=== PATIENT | male | born 1940 | race Caucasian/White ===

== ENCOUNTER 2017-07-21 12:42 | Outpatient (CLI) | payer MEDICARE, OTHER | END 2017-07-21 12:43 | disposition home or self-care (01) | LOC: BICRAD 12:42 | PROVIDERS: ATTEND Internal Medicine | DX: Z03.89 Encounter for observation for other suspected diseases and conditions ruled out (principal) | CPT/HCPCS: 71046 ==

== ENCOUNTER 2018-06-16 12:49 | Inpatient (IN) | payer MEDICARE, OTHER ==
[2018-06-16 13:36] LABS: #Basophils 0.1 thou/uL (0.0-0.2); #Lymphocytes 4.6 thou/uL (1.20-3.40); #Monocytes 0.5 thou/uL (0.11-0.59); #Neutrophils 4.8 thou/uL (1.40-6.50); %Basophils 1.1 % (0.0-1.0); %Eosinophils 0.3 % (0.0-10.0); %Lymphocytes 46.2 % (21.0-51.0); %Monocytes 4.6 % (0.0-10.0); %Neutrophils 47.8 % (42.0-75.0); Hemoglobin 13.2 g/dL (14.0-18.0); Mean Corpuscular HGB CONC 32.1 g/dL (32.0-36.0); Mean Corpuscular Hemoglobin 29.7 pg (27.0-31.0); Mean Corpuscular Volume 92.5 fL (78.0-98.0); Mean Platelet Volume 7.4 fL (7.4-10.4); Platelet Count 104 thou/uL (130-400); RBC Distribution Width 12.2 % (11.5-14.5); Red Blood Cell (RBC) Count 4.44 mill/uL (4.70-6.10); White Blood Cell (WBC) Count 9.9 thou/uL (4.8-10.8)
[2018-06-16 13:40] LABS: ALT (SGPT) 20 U/L (8-55); AST (SGOT) 34 U/L (5-34); Albumin 4.4 g/dL (3.4-4.8); Alkaline Phosphatase 120 U/L (40-150); Anion Gap 19 mmol/L (10-20); BUN (Urea Nitrogen) 35 mg/dL (8.4-25.7); Bilirubin, Total 0.6 mg/dL (0.2-1.2); Calc. Creatinine Clearance 0 mL/min (70-130); Calcium 9.6 mg/dL (7.8-10.44); Carbon Dioxide 22 mmol/L (23-31); Chloride 102 mmol/L (98-107); Estimated GFR-MDRD 31; Globulin 2.7 g/dL (2.4-3.5); Glucose 132 mg/dL (83-110); Potassium 4.2 mmol/L (3.5-5.1); Protein, Total 7.1 g/dL (5.8-8.1); Sodium 139 mmol/L (136-145)
[2018-06-16 13:41] LABS: Bilirubin Negative (Negative); Blood, Urine Negative (Negative); Clarity Clear (Clear); Glucose, Urine (Dipstick) 250 mg/dL (Negative); Leukocyte Negative (Negative); Nitrite Negative (Negative); Protein, Urine (Dipstick) 30 mg/dL (Neg-Trace); Specific Gravity, Urine 1.015 (1.005-1.030); Urobilinogen 0.2 mg/dL (0.2-1.0)
[2018-06-16 13:45] LABS: PLT Morphology Comment Appears Decreased; RBC Morphology Normal
[2018-06-16 14:04] LABS: Bacteria/HPF None Seen HPF (None Seen); RBC/HPF 0-3 HPF (0-3); Squamous Epithelial 0-3 HPF (0-3); WBC/HPF 0-3 HPF (0-3)
--- NOTE | 2018-06-16 14:10 | RAD ---
UPRIGHT PORTABLE CHEST ONE VIEW: HISTORY: A 78-year-old male with a history of dyspnea and weakness. COMPARISON: 07/21/2017 FINDINGS: Postop midline sternotomy and coronary artery bypass changes. Left ICD. Minimal cardiomegaly. Evid ence for healed right rib fractures. No confluent pneumonia, overt edema, or pleural effusion. IMPRESSION: 1. Minimal cardiomegaly. 2. Postoperative midline sternotomy and coronary artery bypass changes. 3. Left implantable cardioverter-defibrillator. 4. Atherosclerosis of the aorta. 5. No significant new process. POS: [facility]
[2018-06-16] MEDS ORDERED: Sodium Chloride 0.9% 100 ML ONE (14:58)
[2018-06-16] MEDS ORDERED: cefTRIAXone\\ROCEPHIN 2 GM VIAL ONE (14:58)
--- NOTE | 2018-06-16 15:52 | CT ---
CT BRAIN WITHOUT CONTRAST: HISTORY: Altered mental status. Generalized weakness. Fall. 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 The ventricular size is appropriate and the basilar cisterns are patent. No evidence of acute infarct, hemorrhage, midline shift, or abnormal extraaxial fluid collections is seen. The bony calvarium is intact. The visualized paranasal sinuses and mastoid air cells are well aerated. IMPRESSION: No CT evidence of acute intracranial process. POS: [facility]
[2018-06-16 16:16] LABS: Lactic Acid 1.3 mmol/L (0.5-2.2)
[2018-06-16 17:21] LABS: Troponin I 0.061 ng/mL (< 0.028)
[2018-06-16 17:50] VITALS: BMI 26.9
[2018-06-16] MEDS ORDERED: Dextrose 5% in Water 1,000 ML IV PRN (18:34)
[2018-06-16] MEDS ORDERED: HumaLOG 300 UNITS/3 ML VIAL SC PRN ×2 (18:34)
[2018-06-16] MEDS ORDERED: Ondansetron ODT 4 MG TAB PO PRN (18:34)
[2018-06-16] MEDS ORDERED: Ondansetron PF 4 MG/2 ML Vial IVP PRN (18:34)
[2018-06-16] MEDS ORDERED: INSULIN DETEMIR SC PRN (18:34)
[2018-06-16] MEDS ORDERED: Dextrose 50% Abboject 50 ML SYRINGE SLOW IVP PRN (18:34)
[2018-06-16] MEDS ORDERED: VANCOMYCIN/ RENALLY ADJUST ZOSYN IVPB PRN (19:05)
[2018-06-16] MEDS ORDERED: Insulin Glargine 8 UNITS in Pre-Filled Syringe 1 EACH SC PRN (19:15)
[2018-06-16] MEDS: Sodium Chloride 0.9% 1,000 ML IV SCH (19:23)
[2018-06-16 20:27] LABS: Troponin I 0.075 ng/mL (< 0.028)
[2018-06-16] MEDS ORDERED: Non-Formulary Item 1 EACH (Fluticasone/Vilanterol [Breo Ellipta 200-25 Mcg Inh] 1 PUFF) INH SCH (21:00)
[2018-06-16] MEDS: Famotidine 20 MG TAB PO SCH (21:19)
[2018-06-16] MEDS: Carvedilol 6.25 MG TAB PO SCH (21:19)
[2018-06-16] MEDS: Vancomycin HCl 1.25 GM in Sodium Chloride 0.9% 250 ML 250 ML IVPB SCH (21:29)
[2018-06-16] MEDS: Piperacillin/Tazobactam 2.25 GM in Sodium Chloride 0.9% 100 ML IVPB SCH (23:58)
[2018-06-16] MEDS ORDERED: Piperacillin/Tazobactam 3.375 GM in Sodium Chloride 0.9% 100 ML IVPB SCH (23:59)
--- NOTE | 2018-06-17 02:15 | HP ---
PRIMARY CARE PROVIDER: Dr. Sonny Giang. CHIEF COMPLAINT: General weakness and shaking chills. HISTORY OF PRESENT ILLNESS: This is a 78-year-old male, who presents to [facility] Emergency Department complaining of profound weakness, shaking chills and riders which began in the last 24 hours. The patient states he initially was evaluated by his primary care provider in the last 48 hours and placed on undisclosed medication. The patient states he began to experience shaking chills, at which point, he sought medical attention at his primary care provider's office. The patient states he began to have multiple episodes of emesis, profound weakness, and was unable to chief engineering division the bathroom stall slumping to the floor. The patient needed assistance to get into a wheelchair, but denied any luna syncope or blacking out spell. The patient denied any specific known exposure history, but states that over the hols, he was at two different parties and exposed up to 40 different people and extended family members. The patient denies any knowledge of family members with similar symptoms and states his does not have any similar symptoms or fever. The patient denied any specific increased shortness of breath or prominent cough, but does state some postnasal drainage and nasal congestion. The patient denied any recent antibiotic exposure, change to his chronic medication regimen, or recent vaccinations. The patient states he is current on his influenza and pneumonia vaccinations. The patient denied any recent surgical exposure or dental procedures. In the emergency room, the patient underwent general evaluation, receiving intravenous normal saline x2.25 L in addition to Levaquin and Rocephin after concern for sepsis and an early pneumonia. The patient states he has symptomatically improved with supportive management and IV fluids, and was noted with elevated lactic acid level and heart rate. The patient was transferred to the telemetry unit for further evaluation. PAST MEDICAL HISTORY: 1. Diabetes mellitus type 2 x23 years. 2. Hyperlipidemia. 3. Hypertension. 4. Coronary artery disease, status post myocardial infarction. 5. History of congestive heart failure with implantable cardioverter-defibrillator. 6. Chronic thrombocytopenia. 7. Chronic kidney disease stage 3. 8. History of cataracts. PAST SURGICAL HISTORY: 1. Status post cardioverter-defibrillator placement. 2. Status post bilateral cataract removal. 3. Status post left total hip arthroplasty. 4. Status post coronary artery bypass grafting x2 vessels. 5. Status post left shoulder arthroscopy. 6. Status post left wrist with de Quervain tendinitis surgery. 7. Status post multiple endoscopies. CURRENT MEDICATIONS: 1. Amiodarone 200 mg p.o. daily. 2. Enteric-coated aspirin 81 mg p.o. daily. 3. Carvedilol 6.25 mg p.o. b.i.d. 4. Ferrous sulfate 325 mg p.o. b.i.d. 5. Breo Ellipta one puff inhaled q.h.s. 6. Lasix 20 mg p.o. daily. 7. Glyburide 5 mg p.o. b.i.d. 8. Hydralazine 10 mg p.o. b.i.d. 9. Levemir insulin 18 units subcutaneously daily. 10. Levothyroxine 75 mcg p.o. daily. 11. Simvastatin 40 mg p.o. q.h.s. 12. Flomax 0.8 mg p.o. daily. 13. Temazepam 30 mg p.o. q.h.s. 14. Coenzyme Q10 one capsule p.o. daily. ALLERGIES: HYDROCODONE, ADHESIVE TAPE, AZITHROMYCIN, DOXYCYCLINE, PROMETHAZINE, ENOXAPARIN. FAMILY HISTORY: Mother of complications of congestive heart failure at the age of 86. Father of lung cancer at the age of 69. SOCIAL HISTORY: No current alcohol, tobacco, or illicit drug use. Quit smoking over 20 years prior to this evaluation. 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 . Functional of all activities of daily living. REVIEW OF SYSTEMS: CONSTITUTIONAL: Negative for weight loss or gain, ability to conduct usual activities. SKIN: Negative for rash, itching. EYES: Negative for double vision, pain. ENT/MOUTH: Negative for nose bleeding, neck stiffness, pain, tenderness. CARDIOVASCULAR: Negative for palpitations, dyspnea on exertion, orthopnea. RESPIRATORY: Negative for shortness of breath, wheezing, cough, hemoptysis, fever or night sweats. GASTROINTESTINAL: Negative for poor appetite, abdominal pain, heartburn, nausea, vomiting, constipation, or diarrhea. GENITOURINARY: Negative for urgency, frequency, dysuria, nocturia. MUSCULOSKELETAL: Negative for pain, swelling. NEUROLOGIC/PSYCHIATRIC: Negative for anxiety, depression. ALLERGY/IMMUNOLOGIC: Negative for skin rash, bleeding tendency. Otherwise, negative except as stated per HPI. PHYSICAL EXAMINATION: VITAL SIGNS: On admission, blood pressure 122/58, pulse 90, respiratory rate 18, temperature 98.4 degrees Fahrenheit, O2 saturation 98% on 2 L/minute by nasal cannula. GENERAL APPEARANCE: This is a 78-year-old male, alert and oriented x3, pleasant, conversant, in no acute distress. HEENT: Pupils are equal, round, and reactive to light and accommodation. Extraocular muscles are intact. No scleral icterus. Mild conjunctival injection, right greater than left. Nares patent. OP is clear. Upper and lower dentures noted. NECK: Supple. No cervical adenopathy. No thyromegaly. No carotid bruits. No JVD appreciated. Cervical spine with full active and passive range of motion. No meningeal signs appreciated. CHEST: Lungs are clear to auscultation bilaterally. CARDIOVASCULAR: S1 and S2 without noted murmur, rub, or gallop. ABDOMEN: Rounded, soft, nontender, and nondistended. Bowel sounds are positive in all four quadrants. There is no hepatosplenomegaly. No abdominal bruits. No rebound or guarding appreciated. EXTREMITIES: Warm and dry with fair turgor. No clubbing, cyanosis, or asymmetric edema appreciated. Pulses palpable distally at the dorsalis pedis, posterior tibial, and popliteal arteries bilaterally. Capillary refill less than 2 seconds. NEUROLOGIC: Cranial nerves 2 through 12 are grossly intact. No focal or lateralizing signs appreciated. PERTINENT LABORATORY AND X-RAY FINDINGS: Sodium 139, potassium 4.2, chloride 102, CO2 of 22, BUN 35, creatinine 2.06, estimated GFR 31, glucose 132. Lactic acid level 3.2, previously noted 1.3 on 06/16/2018 at 4:15 am. Troponin I ranged between 0.016 to 0.061. BNP 361. CBC showed a white blood cell count of 9.9, hemoglobin 13, hematocrit 41, platelet count 104 with 45% neutrophils. Urinalysis positive for protein and glucose. Influenza A and B antigen dated 06/16/2018 negative. Portable chest x-ray dated 06/16/2018 showed postoperative changes without acute infiltrate. CT of the brain without contrast dated 06/16/2018 showed no acute intracranial process. EKG dated 06/16/2018 by my interpretation shows atrial sensed and V paced rhythm in the low 100s. ASSESSMENT AND PLAN: 1. Sepsis. The patient will be admitted to the telemetry Unit. Exact source is unclear currently. We will continue empiric treatment with vancomycin and Zosyn. Await blood and urine culture results. We will continue IV fluids with normal saline at 100 mL/h. Continue general sepsis protocol. 2. Acute kidney injury on chronic kidney disease stage 3 to 4. Avoid nephrotoxic agents and limit contrast exposure. Continue IV fluids as outlined in #1. Repeat creatinine in the a.m. 3. Lactic acidosis. Secondary to #1. We will continue serial lactic acid assessment per protocol. 4. Acute metabolic encephalopathy. Suspect secondary to #1. Improved with volume replacement and IV antibiotics. We will continue to monitor mental status with reorientation techniques as needed. 5. Diabetes mellitus type 2, insulin requiring. Resume home insulin regimen with Levemir 8 units subcutaneously daily. Insulin sliding scale for reflexive coverage. ADA diet. 6. Hypertension. Resume home antihypertensive regimen and monitor clinical response. 7. Prophylaxis. SCDs while in bed. Pepcid 20 mg p.o. b.i.d. PT evaluation for functional assessment in the a.m. CODE STATUS: Full. Surrogate medical decision maker is patient's spouse. Job ID: [id number]
[2018-06-17] MEDS: Levothyroxine Sodium 75 MCG TAB PO SCH (05:40)
[2018-06-17] MEDS: Piperacillin/Tazobactam 2.25 GM in Sodium Chloride 0.9% 100 ML IVPB SCH ×4 (05:40→23:15)
[2018-06-17] MEDS: Sodium Chloride 0.9% 1,000 ML IV SCH ×3 (05:42→23:14)
[2018-06-17 06:59] LABS: Anion Gap 12 mmol/L (10-20); BUN (Urea Nitrogen) 31 mg/dL (8.4-25.7); Calc. Creatinine Clearance 40 mL/min (70-130); Calcium 8.3 mg/dL (7.8-10.44); Carbon Dioxide 23 mmol/L (23-31); Chloride 108 mmol/L (98-107); Estimated GFR-MDRD 36; Glucose 76 mg/dL (83-110); Potassium 4.1 mmol/L (3.5-5.1); Sodium 139 mmol/L (136-145)
[2018-06-17 08:09] LABS: Hemoglobin 11.9 g/dL (14.0-18.0); Mean Corpuscular HGB CONC 32.8 g/dL (32.0-36.0); Mean Corpuscular Hemoglobin 31.1 pg (27.0-31.0); Mean Platelet Volume 7.9 fL (7.4-10.4); Platelet Count 99 thou/uL (130-400); RBC Distribution Width 12.6 % (11.5-14.5); Red Blood Cell (RBC) Count 3.83 mill/uL (4.70-6.10); White Blood Cell (WBC) Count 8.6 thou/uL (4.8-10.8)
[2018-06-17 08:10] LABS: Band 27 % (5-11); Lymphocytes 54 % (21-51); MDiff Complete? YES; Metamyelocyte 1 % (0-0); Monocytes 2 % (0-10); Neutrophil 16 % (42-75); PLT Morphology Comment Appears Decreased
[2018-06-17] MEDS: glyBURIDE 5 MG TAB PO SCH ×2 (08:24→18:13)
[2018-06-17] MEDS: Aspirin 81 mg Enteric Coated Tablet PO SCH (08:24)
[2018-06-17] MEDS: Tamsulosin HCl 0.4 MG CAP PO SCH (08:24)
[2018-06-17] MEDS: Carvedilol 6.25 MG TAB PO SCH ×2 (08:24→20:05)
[2018-06-17] MEDS: Amiodarone 200 MG TAB PO SCH (08:24)
[2018-06-17] MEDS: Acetaminophen 500 MG TAB PO PRN (08:24)
[2018-06-17] MEDS: Mometasone/Formoterol 120 PUFF INHALER INH SCH ×2 (08:54→18:30)
--- NOTE | 2018-06-17 11:49 | PDOC.PN ---
- Subjective Encounter Start Date: 06/17/18 Encounter Start Time: 11:35 Subjective: f/u for suspected sepsis of unclear etiology. Tx with Vanc/Zosyn -: empirically and feeling better overall. Ambulated with PT and felt better. -: No fever. Some frequent stools. - Objective Resuscitation Status - Order Detail: 06/16/18 18:27 Resuscitation Status Routine Resuscitation Status: FULL: Full Resuscitation MAR Reviewed: Yes Vital Signs & Weight: Vital Signs (12 hours) Temp Pulse Resp BP BP Pulse Ox 06/17/18 08:55 95 06/17/18 08:54 76 20 95 06/17/18 08:50 95 06/17/18 08:24 127/58 L 06/17/18 07:36 97.3 F L 80 18 179/84 H 95 06/17/18 03:52 97.6 F 81 16 174/78 H 92 L 06/17/18 01:35 94 L 06/16/18 23:57 98.4 F 103 H 20 151/67 H 93 L Weight Weight 186 lb 4.8 oz I&O: 06/16/18 06/17/18 06/18/18 06:59 06:59 06:59 Intake Total 2049 Output Total 1875 Balance 175 Result Diagrams: 06/17/18 05:20 06/17/18 05:20 Additional Labs: Accuchecks 06/17/18 06/16/18 06/16/18 05:46 22:11 13:31 POC Glucose 83 124 H 133 H Microbiology 06/16/18 13:28 Nasal swab Influenza Types A,B Direct EIA - Final 06/16/18 13:15 Venous blood - Left Arm Blood Culture - Preliminary Specimen has been received and culture in progress. No Growth to date. 06/16/18 02:11 Venous blood - Right Hand Blood Culture - Preliminary Specimen has been received and culture in progress. No Growth to date. Laboratory Tests 06/16/18 06/16/18 06/16/18 04:15 13:15 13:15 Hgb 13.2 L Neutrophils % 47.8 Neutrophils % (Manual) Band Neuts % (Manual) Creatinine 2.06 H Lactic Acid 1.3 Troponin I 06/16/18 06/16/18 06/16/18 13:15 13:15 17:00 Hgb Neutrophils % Neutrophils % (Manual) Band Neuts % (Manual) Creatinine Lactic Acid 3.2 H Troponin I 0.016 0.061 H 06/16/18 06/16/18 06/17/18 19:40 19:40 05:20 Hgb Neutrophils % Neutrophils % (Manual) 16 L Band Neuts % (Manual) 27 H Creatinine Lactic Acid 1.6 Troponin I 0.075 H EKG Reviewed by me: Yes (Tele - V-pacing) Phys Exam - Physical Examination Constitutional: NAD HEENT: PERRLA, sclera anicteric, oral pharynx no lesions Neck: no nodes, no JVD, supple, full ROM Respiratory: no wheezing, no rales, no rhonchi, clear to auscultation bilateral S1, S2 Cardiovascular: RRR, no significant murmur, no rub, gallop Gastrointestinal: soft, non-tender, no distention, positive bowel sounds Musculoskeletal: no edema, pulses present Neurological: normal sensation, moves all 4 limbs Psychiatric: A&O x 3 Skin: normal turgor, cap refill <2 seconds Dx/Plan (1) Sepsis Code(s): A41.9 - SEPSIS, UNSPECIFIED ORGANISM Status: Acute Comment: Unclear etiology, continue empiric abx currently, monitor final blood/ucx results (2) RAJ (acute kidney injury) Code(s): N17.9 - ACUTE KIDNEY FAILURE, UNSPECIFIED Status: Resolved Comment : Improved, avoid nephrotoxic meds and limit contrast exposure, serial monitoring (3) Acute metabolic encephalopathy Code(s): G93.41 - METABOLIC ENCEPHALOPATHY Status: Acute Comment: Improved and resolving, continue supportive mgmt (4) Lactic acidosis Code(s): E87.2 - ACIDOSIS Status: Acute Comment: Resolving (5) DM type 2 (diabetes mellitus, type 2) Status: Chronic Comment: ISS, ADA, serial accuchecks (6) HTN (hypertension) Code(s): I10 - ESSENTIAL (PRIMARY) HYPERTENSION Status: Chronic Qualifiers: Hypertension type: essential hypertension Qualified Code(s): I10 - Essential (primary) hypertension Comment: Resume home BP regimen, serial monitoring - Plan plan discussed w/ family, continue antibiotics, 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 diff antigen/toxin * .
[2018-06-17] MEDS: Temazepam 15 MG CAP PO SCH (20:05)
[2018-06-17] MEDS: hydrALAZINE 10 MG TAB PO SCH (20:05)
[2018-06-17] MEDS: Vancomycin HCl 1.25 GM in Sodium Chloride 0.9% 250 ML 250 ML IVPB SCH (20:06)
[2018-06-17] MEDS: Famotidine 20 MG TAB PO SCH (20:06)
[2018-06-18] MEDS: Piperacillin/Tazobactam 2.25 GM in Sodium Chloride 0.9% 100 ML IVPB SCH (04:36)
[2018-06-18] MEDS: Levothyroxine Sodium 75 MCG TAB PO SCH (04:36)
[2018-06-18] MEDS: Mometasone/Formoterol 120 PUFF INHALER INH SCH ×2 (06:47→18:30)
[2018-06-18] MEDS: Acetaminophen 500 MG TAB PO PRN ×2 (07:29→17:39)
[2018-06-18] MEDS: hydrALAZINE 10 MG TAB PO SCH ×2 (08:48→20:13)
[2018-06-18] MEDS: Amiodarone 200 MG TAB PO SCH (08:48)
[2018-06-18] MEDS: glyBURIDE 5 MG TAB PO SCH ×2 (08:48→16:20)
[2018-06-18] MEDS: Tamsulosin HCl 0.4 MG CAP PO SCH (08:48)
[2018-06-18] MEDS: Aspirin 81 mg Enteric Coated Tablet PO SCH (08:48)
[2018-06-18] MEDS: Carvedilol 6.25 MG TAB PO SCH ×2 (08:48→20:13)
[2018-06-18] MEDS: Vancomycin HCl 25 MG/ML Oral PO SCH ×4 (10:27→20:12)
[2018-06-18] MEDS: Saccharomyces boulardii 250 MG CAP PO SCH ×2 (10:27→20:13)
[2018-06-18] MEDS: Sodium Chloride 0.9% 1,000 ML IV SCH (13:42)
--- NOTE | 2018-06-18 14:55 | PDOC.PN ---
- Subjective Encounter Start Date: 06/18/18 Encounter Start Time: 14:53 Subjective: still feels weak and some abd pain -: loose stools w increased frequency -: care discussed w at bedside - Objective Resuscitation Status - Order Detail: 06/16/18 18:27 Resuscitation Status Routine Resuscitation Status: FULL: Full Resuscitation MAR Reviewed: Yes Vital Signs & Weight: Vital Signs (12 hours) Temp Pulse Resp BP Pulse Ox 06/18/18 07:31 98.1 F 109 H 18 169/87 H 95 06/18/18 06:51 94 L 06/18/18 06:47 89 20 94 L 06/18/18 04:00 99 F 85 16 171/80 H 96 Weight Weight 187 lb 5 oz I&O: 06/17/18 06/18/18 06/19/18 06:59 06:59 06:59 Intake Total 2050 1725 Output Total 1875 975 Balance 175 750 Result Diagrams: 06/17/18 05:20 06/17/18 05:20 Additional Labs: Accuchecks 06/18/18 06/18/18 06/17/18 11:03 06:01 20:39 POC Glucose 125 H 107 161 H 06/17/18 18:11 POC Glucose 153 H Microbiology 06/17/18 16:27 Stool C. difficile GDH Antigen & Toxins - Final 06/17/18 16:27 Anus Stool Lactoferrin - Final 06/17/18 16:27 Anus Campylobacter Antigen Assay - Final 06/17/18 16:27 Anus Shiga Toxin Test - Final 06/16/18 13:28 Nasal swab Influenza Types A,B Direct EIA - Final 06/17/18 05:20 Urine clean catch Urine Culture - Preliminary NO GROWTH AT 24 HOURS 06/16/18 13:15 Venous blood - Left Arm Blood Culture - Preliminary Specimen has been received and culture in progress. No Growth to date. 06/16/18 02:11 Venous blood - Right Hand Blood Culture - Preliminary Specimen has been received and culture in progress. No Growth to date. Laboratory Tests 01/31/17 06/16/18 06/16/18 16:48 13:15 13:15 Creatinine 1.93 H 2.06 H Lactic Acid 3.2 H 06/16/18 06/17/18 19:40 05:20 Creatinine 1.83 H Lactic Acid 1.6 Phys Exam - Physical Examination Constitutional: NAD pale HEENT: PERRLA, moist MMs, sclera anicteric, oral pharynx no lesions Respiratory: no wheezing, no rales, no rhonchi, clear to auscultation bilateral Cardiovascular: RRR, no significant murmur, no rub Gastrointestinal: soft, no distention, positive bowel sounds mild tenderness Musculoskeletal: no edema, pulses present Neurological: non-focal, normal sensation, moves all 4 limbs Psychiatric: normal affect, A&O x 3 Skin: no rash Dx/Plan (1) Sepsis Code(s): A41.9 - SEPSIS, UNSPECIFIED ORGANISM Status: Acute Comment: Unclear etiology, continue empiric abx currently, monitor final blood/ucx results (2) C. difficile colitis Status: Acute (3) RAJ (acute kidney injury) Code(s): N17.9 - ACUTE KIDNEY FAILURE, UNSPECIFIED Status: Acute (4) Ischemic cardiomyopathy Code(s): I25.5 - ISCHEMIC CARDIOMYOPATHY Status: Chronic (5) Chronic systolic (congestive) heart failure Code(s): I50.22 - CHRONIC SYSTOLIC (CONGESTIVE) HEART FAILURE Status: Chronic (6) DM type 2 (diabetes mellitus, type 2) Status: Chronic Comment: ISS, ADA, serial accuchecks (7) HTN (hypertension) Code(s): I10 - ESSENTIAL (PRIMARY) HYPERTENSION Status: Chronic Qualifiers: Hypertension type: essential hypertension Qualified Code(s): I10 - Essential (primary) hypertension Comment: Resume home BP regimen, serial monitoring (8) h/o ischemic colitis Status: Chronic - Plan plan discussed w/ family, continue antibiotics, DVT proph w/SCDs DC IV Vanco and zosyn.start PO Vanco for C diff -: cont IVF -: add probiotics.supportive care -: monitor renal Fx -: Hd stable * . Review of Systems - Review of Systems Constitutional: weakness, malaise. negative: fever, chills, sweats, other ENT: negative: Ear Pain, Ear Discharge, Nose Pain, Nose Discharge, Nose Congestion, Mouth Pain, Mouth Swelling, Throat Pain, Throat Swelling, Other Respiratory: negative: Cough, Dry, Shortness of Breath, Hemoptysis, SOB with Excertion, Pleuritic Pain, Sputum, Wheezing Cardiovascular: negative: chest pain, palpitations, orthopnea, paroxysmal nocturnal dyspnea, edema, light headedness, other Gastrointestinal: Nausea, Abdominal Pain, Diarrhea Genitourinary: negative: Dysuria, Frequency, Incontinence, Hematuria, Retention , Other Musculoskeletal: negative: Neck Pain, Shoulder Pain, Arm Pain, Back Pain, Hand Pain, Leg Pain, Foot Pain, Other Neurological: negative: Weakness, Numbness, Incoordination, Change in Speech, Confusion, Seizures, Other - Medications/Allergies Allergies/Adverse Reactions: Allergies Allergy/AdvReac Type Severity Reaction Status Date / Time hydrocodone Allergy Intermediate Hives Verified 06/16/18 17:48 adhesive Allergy Verified 06/16/18 17:48 azithromycin Allergy Verified 06/16/18 17:48 doxycycline Allergy Verified 06/16/18 17:48 enoxaparin sodium Allergy Verified 06/16/18 17:48 [From Lovenox] ropivacaine Allergy Verified 06/16/18 17:48 promethazine [From Phenergan] AdvReac Verified 06/16/18 17:48 adhesive tape Allergy Uncoded 06/16/18 17:48 Norapin Allergy Uncoded 06/16/18 17:48 tegaderm tape Allergy Uncoded 06/16/18 17:48 Medications: Current Medications Acetaminophen (Tylenol) 1,000 mg PO Q6H PRN PRN Reason: Mild Pain (1-3) Last Admin: 06/18/18 07:29 Dose: 1,000 mg Amiodarone HCl (Cordarone) 200 mg PO DAILY [facility] Last Admin: 06/18/18 08:48 Dose: 200 mg Aspirin (Ecotrin) 81 mg PO DAILY [facility] Last Admin: 06/18/18 08:48 Dose: 81 mg Carvedilol (Coreg) 6.25 mg PO BID [facility] Last Admin: 06/18/18 08:48 Dose: 6.25 mg Dextrose/Water (Dextrose 50%) 25 gm SLOW IVP PRN PRN PRN Reason: Hypoglycemia Famotidine (Pepcid) 20 mg PO QPM [facility] Last Admin: 06/17/18 20:06 Dose: 20 mg Glucagon (Glucagon) 1 mg IM PRN PRN PRN Reason: Hypoglycemia Glyburide (Diabeta) 5 mg PO BID-[facility] Last Admin: 06/18/18 08:48 Dose: 5 mg Hydralazine HCl (Apresoline) 10 mg PO BID [facility] Last Admin: 06/18/18 08:48 Dose: 10 mg Dextrose/Water (D5w) 1,000 mls @ 0 mls/hr IV .Q0M PRN PRN Reason: Hypoglycemia Insulin Glargine 8 units/ (Miscellaneous Medication) 0.08 mls @ 0 mls/hr SC DAILYPRN PRN PRN Reason: glucose Sodium Chloride (Normal Saline 0.9%) 1,000 mls @ 75 mls/hr IV .[id number] [facility] Last Admin: 06/18/18 13:42 Dose: 1,000 mls Insulin Human Lispro (Humalog) 0 units SC .MILD SLIDING SCALE PRN PRN Reason: Mild Correctional Scale Insulin Human Lispro (Humalog) 0 units SC .BEDTIME SLIDING SC PRN PRN Reason: Bedtime Correctional Scale Levothyroxine Sodium (Synthroid) 75 mcg PO 0600 [facility] Last Admin: 06/18/18 04:36 Dose: 75 mcg Miscellaneous Medication (Pharmacy To Dose) 1 each IVPB PRN PRN PRN Reason: Pharmacy to dose Mometasone Furoate/Formoterol Fumar (Dulera 100 Mcg/5 Mcg Inhaler) 2 puff INH BID-RT [facility] Last Admin: 06/18/18 06:47 Dose: 2 puff Ondansetron HCl (Zofran Odt) 4 mg PO Q6H PRN PRN Reason: Nausea/Vomiting Ondansetron HCl (Zofran) 4 mg IVP Q6H PRN PRN Reason: Nausea/Vomiting Saccharomyces Boulardii (Florastor) 250 mg PO BID [facility] Last Admin: 06/18/18 10:27 Dose: 250 mg Sodium Chloride (Flush - Normal Saline) 10 ml IVF Q12HR [facility] Last Admin: 06/18/18 08:49 Dose: Not Given Sodium Chloride (Flush - Normal Saline) 10 ml IVF PRN PRN PRN Reason: Saline Flush Tamsulosin HCl (Flomax) 0.4 mg PO DAILY [facility] Last Admin: 06/18/18 08:48 Dose: 0.4 mg Temazepam (Restoril) 30 mg PO HS [facility] Last Admin: 06/17/18 20:05 Dose: 30 mg Vancomycin HCl (First Vancomycin) 250 mg PO QID [facility] Last Admin: 06/18/18 13:38 Dose: 250 mg
[2018-06-18] MEDS ORDERED: hydrALAZINE 20 MG/ML VIAL SLOW IVP PRN (17:03)
[2018-06-18] MEDS ORDERED: Promethazine HCl 25 MG/ML VIAL SLOW IVP PRN (18:52)
[2018-06-18] MEDS: Famotidine 20 MG TAB PO SCH (20:13)
[2018-06-18] MEDS: Temazepam 15 MG CAP PO SCH (20:13)
[2018-06-19] MEDS: Sodium Chloride 0.9% 1,000 ML IV SCH (00:01)
[2018-06-19] MEDS: Levothyroxine Sodium 75 MCG TAB PO SCH (06:14)
[2018-06-19 06:26] LABS: Anion Gap 14 mmol/L (10-20); BUN (Urea Nitrogen) 19 mg/dL (8.4-25.7); Calc. Creatinine Clearance 54 mL/min (70-130); Calcium 8.2 mg/dL (7.8-10.44); Carbon Dioxide 20 mmol/L (23-31); Chloride 109 mmol/L (98-107); Estimated GFR-MDRD 50; Glucose 108 mg/dL (83-110); Potassium 4.1 mmol/L (3.5-5.1); Sodium 139 mmol/L (136-145)
[2018-06-19] MEDS: Mometasone/Formoterol 120 PUFF INHALER INH SCH ×2 (06:50→19:20)
[2018-06-19] MEDS: Vancomycin HCl 25 MG/ML Oral PO SCH ×4 (08:38→21:01)
[2018-06-19] MEDS: glyBURIDE 5 MG TAB PO SCH (08:38)
[2018-06-19] MEDS: Amiodarone 200 MG TAB PO SCH (08:39)
[2018-06-19] MEDS: Carvedilol 6.25 MG TAB PO SCH ×2 (08:39→21:00)
[2018-06-19] MEDS: Saccharomyces boulardii 250 MG CAP PO SCH ×2 (08:39→20:59)
[2018-06-19] MEDS: hydrALAZINE 10 MG TAB PO SCH ×2 (08:40→21:00)
[2018-06-19] MEDS: Tamsulosin HCl 0.4 MG CAP PO SCH (08:40)
[2018-06-19] MEDS: Aspirin 81 mg Enteric Coated Tablet PO SCH (08:41)
--- NOTE | 2018-06-19 13:03 | PDOC.PN ---
- Subjective Encounter Start Date: 06/19/18 Encounter Start Time: 11:55 -: old records requested/rev Pt seen and examined, chart reviewed in its entirety, this is my first visit with this patient at the bedside, updated to plan No f/C since yesterday, no N/V/d/C, reanna po, no CP or SOB, getting to [facility] easier today - Objective Resuscitation Status - Order Detail: 06/16/18 18:27 Resuscitation Status Routine Resuscitation Status: FULL: Full Resuscitation MAR Reviewed: Yes Vital Signs & Weight: Vital Signs (12 hours) Temp Pulse Resp BP Pulse Ox 06/19/18 11:46 97.9 F 65 16 161/67 H 97 06/19/18 08:25 99 06/19/18 08:20 97.8 F 71 17 147/63 H 99 06/19/18 06:58 99 06/19/18 06:50 71 16 99 06/19/18 04:00 97.7 F 75 18 146/61 H 97 Weight Weight 192 lb 7 oz I&O: 06/18/18 06/19/18 06/20/18 06:59 06:59 06:59 Intake Total 1725 1380 Output Total 975 Balance 750 1380 Result Diagrams: 06/17/18 05:20 06/19/18 05:06 Additional Labs: Accuchecks 06/18/18 06/18/18 20:23 17:39 POC Glucose 140 H 142 H Radiology Reviewed by me: Yes EKG Reviewed by me: Yes Phys Exam - Physical Examination Constitutional: NAD HEENT: PERRLA, moist MMs, sclera anicteric, oral pharynx no lesions Neck: no nodes, no JVD, supple, full ROM Respiratory: no wheezing, no rales, no rhonchi, clear to auscultation bilateral Cardiovascular: RRR, no significant murmur, no rub Gastrointestinal: soft, non-tender, positive bowel sounds distended and tympanitic Musculoskeletal: no edema, pulses present Neurological: non-focal, normal sensation, moves all 4 limbs Lymphatic: no nodes Psychiatric: normal affect, A&O x 3 Skin: no rash, normal turgor, cap refill <2 seconds Dx/Plan (1) RAJ (acute kidney injury) Code(s): N17.9 - ACUTE KIDNEY FAILURE, UNSPECIFIED Status: Resolved Comment : Cr 1.37 (2) Acute metabolic encephalopathy Code(s): G93.41 - METABOLIC ENCEPHALOPATHY Status: Acute Comment: Improved and resolving, continue supportive mgmt (3) C. difficile colitis Status: Acute (4) Lactic acidosis Code(s): E87.2 - ACIDOSIS Status: Acute Comment: Resolving (5) h/o ischemic colitis Status: Chronic (6) Anemia due to blood loss Code(s): D50.0 - IRON DEFICIENCY ANEMIA SECONDARY TO BLOOD LOSS (CHRONIC) Status: Acute (7) Colitis Status: Acute (8) Sepsis Code(s): A41.9 - SEPSIS, UNSPECIFIED ORGANISM Status: Acute Qualifiers: Sepsis type: sepsis due to unspecified organism Qualified Code(s): A41.9 - Sepsis, unspecified organism Comment: Cdiff (9) Chronic systolic (congestive) heart failure Code(s): I50.22 - CHRONIC SYSTOLIC (CONGESTIVE) HEART FAILURE Status: Chronic (10) DM type 2 (diabetes mellitus, type 2) Status: Chronic Qualifiers: Diabetes mellitus assisted insulin use: without termite treater use Diabetes mellitus complication status: with unspecified complications Qualified Code(s) : E11.8 - Type 2 diabetes mellitus with unspecified complications Comment: ISS, ADA, serial accuchecks (11) HTN (hypertension) Code(s): I10 - ESSENTIAL (PRIMARY) HYPERTENSION Status: Chronic Qualifiers: Hypertension type: essential hypertension Qualified Code(s): I10 - Essential (primary) hypertension Comment: Resume home BP regimen, serial monitoring (12) Labile hypertension Code(s): I10 - ESSENTIAL (PRIMARY) HYPERTENSION Status: Chronic (13) SBO (small bowel obstruction) Code(s): K56.69 - OTHER INTESTINAL OBSTRUCTION * DO NOT USE * Status: Resolved Comment: vs Ileus - Plan cont current plan of care, plan discussed w/ family, continue antibiotics, 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
[2018-06-19] MEDS: Temazepam 15 MG CAP PO SCH (21:00)
[2018-06-19] MEDS: Famotidine 20 MG TAB PO SCH (21:01)
[2018-06-20] MEDS: Acetaminophen 500 MG TAB PO PRN (03:33)
[2018-06-20] MEDS: Levothyroxine Sodium 75 MCG TAB PO SCH (05:13)
[2018-06-20] MEDS: Amiodarone 200 MG TAB PO SCH (08:21)
[2018-06-20] MEDS: Carvedilol 6.25 MG TAB PO SCH ×2 (08:21→20:35)
[2018-06-20] MEDS: Tamsulosin HCl 0.4 MG CAP PO SCH (08:22)
[2018-06-20] MEDS: Saccharomyces boulardii 250 MG CAP PO SCH ×2 (08:22→20:36)
[2018-06-20] MEDS: Aspirin 81 mg Enteric Coated Tablet PO SCH (08:22)
[2018-06-20] MEDS: Vancomycin HCl 25 MG/ML Oral PO SCH ×4 (08:23→20:38)
[2018-06-20] MEDS: hydrALAZINE 10 MG TAB PO SCH ×2 (08:23→20:36)
--- NOTE | 2018-06-20 08:39 | PDOC.PN ---
- Subjective Encounter Start Date: 06/20/18 Encounter Start Time: 08:38 follow up for Cdiff colitis, SBO vs ileus, no resolved, severe sepsis, physical deconditioning No F/C, no N/V/D/C, stool continues to form up, no CP or SOB, still weak, but slowly improving all systems reviewed and neg except as above - Objective Resuscitation Status - Order Detail: 06/16/18 18:27 Resuscitation Status Routine Resuscitation Status: FULL: Full Resuscitation MAR Reviewed: Yes Vital Signs & Weight: Vital Signs (12 hours) Temp Pulse Resp BP BP Pulse Ox 06/20/18 08:23 82 153/65 H 06/20/18 08:21 153/65 H 06/20/18 07:20 98.5 F 82 17 153/65 H 96 06/20/18 03:50 98.3 F 99 18 156/77 H 94 L 06/19/18 21:30 98.2 F 78 18 126/60 97 06/19/18 21:00 83 149/70 H Weight Weight 199 lb 9.6 oz I&O: 06/19/18 06/20/18 06/21/18 06:59 06:59 06:59 Intake Total 1830 Output Total 400 Balance 1430 Result Diagrams: 06/17/18 05:20 06/19/18 05:06 Additional Labs: Accuchecks 06/20/18 06/19/18 06/19/18 06:28 20:19 17:11 POC Glucose 163 H 135 H 129 H 06/19/18 11:35 POC Glucose 154 H Phys Exam - Physical Examination Constitutional: NAD HEENT: PERRLA, moist MMs, sclera anicteric, oral pharynx no lesions Neck: no nodes, no JVD, supple, full ROM Respiratory: no wheezing, no rales, no rhonchi, clear to auscultation bilateral Cardiovascular: RRR, no significant murmur, no rub Gastrointestinal: soft, non-tender, no distention, positive bowel sounds Musculoskeletal: no edema, pulses present Neurological: non-focal, normal sensation, moves all 4 limbs Lymphatic: no nodes Psychiatric: normal affect, A&O x 3 Skin: no rash, normal turgor, cap refill <2 seconds Dx/Plan (1) RAJ (acute kidney injury) Code(s): N17.9 - ACUTE KIDNEY FAILURE, UNSPECIFIED Status: Resolved Comment : Cr 1.37, fluids sstopped, drinking fine, decreased output, check in AM (2) Acute metabolic encephalopathy Code(s): G93.41 - METABOLIC ENCEPHALOPATHY Status: Resolved Comment: resolved. continue supportive mgmt (3) C. 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 resolved (9) Chronic systolic (congestive) heart failure Code(s): I50.22 - CHRONIC SYSTOLIC (CONGESTIVE) HEART FAILURE Status: Chronic Comment: no acut eexacerbation. 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 Diabetes mellitus complication status: with unspecified complications Qualified Code(s) : E11.8 - Type 2 diabetes mellitus with unspecified complications Comment: ISS, ADA, serial accuchecks, stop glyburide until eating reliably (11) HTN (hypertension) Code(s): I10 - ESSENTIAL (PRIMARY) HYPERTENSION Status: Chronic Qualifiers: Hypertension type: essential hypertension Qualified Code(s): I10 - Essential (primary) hypertension Comment: Resume home BP regimen, serial monitoring (12) Labile hypertension Code(s): I10 - ESSENTIAL (PRIMARY) HYPERTENSION Status: Chronic (13) SBO (small bowel obstruction) Code(s): K56.69 - OTHER INTESTINAL OBSTRUCTION * DO NOT USE * Status: Resolved Comment: vs Ileus - Plan cont current plan of care, plan discussed w/ family, continue antibiotics, 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 home soon advance diet to regular, walking program, if reanna po well, home tomorrow
[2018-06-20] MEDS: Mometasone/Formoterol 120 PUFF INHALER INH SCH ×2 (10:39→20:19)
[2018-06-20] MEDS: glyBURIDE 2.5 MG TAB PO SCH (17:24)
[2018-06-20] MEDS: Temazepam 15 MG CAP PO SCH (20:35)
[2018-06-20] MEDS: Famotidine 20 MG TAB PO SCH (20:35)
[2018-06-21] MEDS: Levothyroxine Sodium 75 MCG TAB PO SCH (05:24)
[2018-06-21] MEDS ORDERED: glyBURIDE 5 MG TAB PO SCH (07:30)
[2018-06-21] MEDS: Mometasone/Formoterol 120 PUFF INHALER INH SCH (08:00)
[2018-06-21 08:08] VITALS: BP 146/77; TEMP 98.1
[2018-06-21] MEDS: Aspirin 81 mg Enteric Coated Tablet PO SCH (11:18)
[2018-06-21] MEDS: Amiodarone 200 MG TAB PO SCH (11:18)
[2018-06-21] MEDS: Tamsulosin HCl 0.4 MG CAP PO SCH (11:19)
[2018-06-21] MEDS: Saccharomyces boulardii 250 MG CAP PO SCH (11:19)
[2018-06-21] MEDS: hydrALAZINE 10 MG TAB PO SCH (11:21)
[2018-06-21] MEDS: Carvedilol 6.25 MG TAB PO SCH (11:22)
[2018-06-21] MEDS: Vancomycin HCl 25 MG/ML Oral PO SCH ×3 (11:30→17:24)
[2018-06-21 11:52] LABS: Anion Gap 14 mmol/L (10-20); BUN (Urea Nitrogen) 15 mg/dL (8.4-25.7); Calc. Creatinine Clearance 51 mL/min (70-130); Calcium 8.9 mg/dL (7.8-10.44); Carbon Dioxide 21 mmol/L (23-31); Chloride 107 mmol/L (98-107); Estimated GFR-MDRD 44; Glucose 206 mg/dL (83-110); Sodium 138 mmol/L (136-145)
[2018-06-21 11:57] LABS: Hemoglobin 12.5 g/dL (14.0-18.0); Mean Corpuscular HGB CONC 32.2 g/dL (32.0-36.0); Mean Corpuscular Hemoglobin 30.9 pg (27.0-31.0); Mean Platelet Volume 7.8 fL (7.4-10.4); Platelet Count 123 thou/uL (130-400); RBC Distribution Width 12.7 % (11.5-14.5); Red Blood Cell (RBC) Count 4.04 mill/uL (4.70-6.10); White Blood Cell (WBC) Count 7.6 thou/uL (4.8-10.8)
[2018-06-21 13:03] LABS: Band 5 % (5-11); Eosinophils 1 % (0-10); Lymphocytes 60 % (21-51); MDiff Complete? YES; Monocytes 6 % (0-10); Neutrophil 23 % (42-75); Nucleated RBC 1 % (0); RBC Morphology Normal; Reactive Lymphocytes 5 % (0-10)
--- NOTE | 2018-06-21 15:06 | PDOC.PN ---
- Subjective Encounter Start Date: 06/21/18 Encounter Start Time: 15:05 Mr. Galvez was seen today in follow-up of C. Diff colitis. He says he is not having diarrhea, only some loose stools. - Objective Resuscitation Status - Order Detail: 06/16/18 18:27 Resuscitation Status Routine Resuscitation Status: FULL: Full Resuscitation MAR Reviewed: Yes Vital Signs & Weight: Vital Signs (12 hours) Temp Pulse Resp BP BP Pulse Ox 06/21/18 11:22 146/77 H 06/21/18 11:21 95 146/77 H 06/21/18 08:07 98.1 F 95 18 146/77 H 93 L 06/21/18 08:00 93 L Weight Weight 199 lb 9.6 oz I&O: 06/20/18 06/21/18 06/22/18 06:59 06:59 06:59 Intake Total 1830 2910 Output Total 400 Balance 1430 2910 Result Diagrams: 06/21/18 10:57 06/21/18 10:57 Additional Labs: Accuchecks 06/21/18 06/20/18 06/20/18 05:10 20:03 15:37 POC Glucose 130 H 226 H 193 H Phys Exam - Physical Examination HEENT: PERRLA Respiratory: no wheezing, no rales, no rhonchi, clear to auscultation bilateral Cardiovascular: RRR, no significant murmur, no rub Gastrointestinal: soft, non-tender, no distention, positive bowel sounds Musculoskeletal: no edema Dx/Plan (1) C. 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 Diff Colitis- improving * He is stable for discharge home.
[2018-06-21] MEDS: glyBURIDE 2.5 MG TAB PO SCH (17:25)
--- NOTE | 2018-06-22 03:19 | DIS ---
DATE OF ADMISSION: 06/16/2018 DATE OF DISCHARGE: 06/21/2018 PRIMARY CARE PHYSICIAN: Sonny Giang MD DISCHARGE DISPOSITION: Home. PRIMARY DISCHARGE DIAGNOSES: 1. Clostridium difficile colitis. 2. Diabetes mellitus type 2. 3. Hypertension. 4. Dyslipidemia. 5. Coronary artery disease, status post myocardial infarction. 6. Chronic thrombocytopenia. 7. Chronic kidney disease stage 3. 8. Sepsis due to Clostridium difficile. DISCHARGE MEDICATIONS: Include, 1. Oral vancomycin 250 mg p.o. q.i.d. for 10 days. 2. Florastor 250 mg twice a day for 1 month. 3. Coenzyme Q10 of 100 mg daily. 4. Restoril 30 mg at bedtime. 5. Flomax 0.8 mg daily. 6. Simvastatin 40 mg at bedtime. 7. Levothyroxine 75 mcg p.o. daily. 8. Levemir insulin 5 to 8 units as needed. 9. Hydralazine 10 mg b.i.d. 10. Glyburide 5 mg twice a day. 11. Lasix 20 mg daily. 12. Breo Ellipta 1 puff at bedtime. 13. Carvedilol 6.25 mg twice daily. 14. Aspirin 81 mg daily. 15. Pacerone 200 mg at bedtime. PROCEDURES DONE: During the admission, the patient had a CT scan of the brain, which showed no evidence of any acute intracranial process. CODE STATUS: Full code. ALLERGIES: 1. HYDROCODONE. 2. ADHESIVES. 3. AZITHROMYCIN. 4. DOXYCYCLINE. 5. ENOXAPARIN. 6. ROPIVACAINE. 7. NORPINE. 8. ADHESIVE TAPE. 9. TEGADERM. HOSPITAL COURSE: Mr. Galvez is a pleasant 78-year-old gentleman who came to the emergency room with generalized weakness and diarrhea. He was found to have sepsis syndrome related to Clostridium difficile. Stool studies were done and are positive for C diff both antigen and toxin. He was treated with oral vancomycin with improvement in his symptoms. The sepsis has resolved and he is being discharged home. He is to follow up with Dr. Giang in approximately 1 week. Job ID: [id number]
== END 2018-06-21 17:38 | disposition home or self-care (01) | DRG 871 ==
LOC: SCSER 12:49 → 2NO 14:58 → T4-B 06-19 21:15
PROVIDERS: ADMIT Internal Medicine Infectious Disease; ATTEND Internal Medicine Infectious Disease
DX: A41.9 Sepsis, unspecified organism (principal); G93.41 Metabolic encephalopathy; I13.0 Hypertensive heart and chronic kidney disease with heart failure and stage 1 through stage 4 chronic kidney disease, or unspecified chronic kidney disease; N17.9 Acute kidney failure, unspecified; E87.2 Acidosis; A04.72 Enterocolitis due to Clostridium difficile, not specified as recurrent; I50.22 Chronic systolic (congestive) heart failure; K56.609 Unspecified intestinal obstruction, unspecified as to partial versus complete obstruction; E78.5 Hyperlipidemia, unspecified; E11.22 Type 2 diabetes mellitus with diabetic chronic kidney disease; N18.3 Chronic kidney disease, stage 3 (moderate); D50.0 Iron deficiency anemia secondary to blood loss (chronic); I25.5 Ischemic cardiomyopathy; I25.10 Atherosclerotic heart disease of native coronary artery without angina pectoris; D69.6 Thrombocytopenia, unspecified; Z79.82 Long term (current) use of aspirin; Z79.4 Long term (current) use of insulin; I25.2 Old myocardial infarction; Z95.810 Presence of automatic (implantable) cardiac defibrillator; Z96.642 Presence of left artificial hip joint; Z80.1 Family history of malignant neoplasm of trachea, bronchus and lung
CPT/HCPCS: 36415; 36416; 70450; 71045; 80048; 80053; 80202; 81003; 81015; 83605; 83630; 83880; 84484; 85007; 85025; 85027; 87040; 87045; 87046; 87086; 87324; 87449; 87804; 87899; 93005; 94664; 94760; 96361; 96365; 96367; J0360; J0696; J1956; J2405; J2543; J3370; J7050; Q0162

== ENCOUNTER 2018-07-24 05:15 | Emergency (ER) | payer MEDICARE, OTHER ==
[2018-07-24] MEDS ORDERED: traMADol HCl 50 MG TAB ONE (06:34)
--- NOTE | 2018-07-24 08:48 | RAD ---
THREE VIEWS SACRUM AND COCCYX: HISTORY: Fall 10 days ago with continued tailbone pain. FINDINGS: AP pelvic and lateral views of sacrum and coccyx are obtained. Images demonstrate left hip arthroplasty. A moderate degree of right hip osteoarthritic change is se en. Vascular calcifications are seen in the iliac arteries. Osteopenia noted in the sacrum. The coccyx demonstrates no definite evidence of fractures. IMPRESSION: No definite evidence of sacral or coccygeal fracture is seen. If there is concern for sacral fractur es, correlation with MRI of the sacrum and coccyx may be of use if clinically indicated. POS: ONIEL
== END 2018-07-24 06:51 | disposition home or self-care (01) ==
LOC: SCSER 05:15
DX: S30.0XXA Contusion of lower back and pelvis, initial encounter (principal); E11.40 Type 2 diabetes mellitus with diabetic neuropathy, unspecified; E03.9 Hypothyroidism, unspecified; I25.10 Atherosclerotic heart disease of native coronary artery without angina pectoris; I25.2 Old myocardial infarction; J42 Unspecified chronic bronchitis; M19.90 Unspecified osteoarthritis, unspecified site; Z87.891 Personal history of nicotine dependence; Z79.4 Long term (current) use of insulin; Z79.82 Long term (current) use of aspirin; Z79.899 Other long term (current) drug therapy; W01.0XXA Fall on same level from slipping, tripping and stumbling without subsequent striking against object, initial encounter
CPT/HCPCS: 72220

== ENCOUNTER 2020-01-16 12:12 | Outpatient (CLI) | payer MEDICARE, OTHER ==
--- NOTE | 2020-01-16 12:24 | RAD ---
EXAM: Chest 2 views: HISTORY: Chest pain COMPARISON: 05/24/2012 FINDINGS: There is a normal-sized cardiomediastinal silhouette. The patient is status post CABG. A pacemaker s een with its leads in the right atrium, right ventricle, and coronary sinus There is no evidence of consolidation, mass, or pleural effusion. The bones are unremarkable. IMPRESSION: No evidence of acute cardiopulmonary disease
== END 2020-01-16 12:13 | disposition home or self-care (01) ==
LOC: BICRAD 12:12
PROVIDERS: ATTEND Internal Medicine Cardiovascular Disease
DX: I47.2 Ventricular tachycardia (principal)
CPT/HCPCS: 71046

== ENCOUNTER 2021-02-03 10:21 | Outpatient (CLI) | payer MEDICARE, BC, OTHER | END 2021-02-03 10:22 | disposition home or self-care (01) | LOC: BICRAD 10:21 | PROVIDERS: ATTEND Internal Medicine Cardiovascular Disease | DX: I47.2 Ventricular tachycardia (principal) | CPT/HCPCS: 71046 ==

== ENCOUNTER 2021-09-17 11:00 | Outpatient (CLI) | payer MEDICARE, BC | END 2021-09-17 11:01 | disposition home or self-care (01) | LOC: PET 11:00 | PROVIDERS: ATTEND Internal Medicine Hematology & Oncology | DX: C83.00 Small cell B-cell lymphoma, unspecified site (principal); R59.0 Localized enlarged lymph nodes | CPT/HCPCS: 78815; A9552 ==

== ENCOUNTER 2022-03-05 10:15 | Outpatient (CLI) | payer MEDICARE, BC | END 2022-03-05 10:16 | disposition home or self-care (01) | LOC: PET 10:15 | PROVIDERS: ATTEND Internal Medicine Hematology & Oncology | DX: C83.05 Small cell B-cell lymphoma, lymph nodes of inguinal region and lower limb (principal); R59.0 Localized enlarged lymph nodes | CPT/HCPCS: 78815; A9552 ==

== ENCOUNTER 2022-04-12 10:59 | Outpatient (CLI) | payer MEDICARE, BC | END 2022-04-12 11:00 | disposition home or self-care (01) | LOC: CT 10:59 | PROVIDERS: ATTEND Internal Medicine Hematology & Oncology | DX: S09.90XA Unspecified injury of head, initial encounter (principal); I61.9 Nontraumatic intracerebral hemorrhage, unspecified | CPT/HCPCS: 70450; 80053; 82248; 83615; 84100; 84550 ==

== ENCOUNTER 2022-07-01 09:30 | Outpatient (CLI) | payer MEDICARE, BC | END 2022-07-01 09:31 | disposition home or self-care (01) | LOC: PET 09:30 | PROVIDERS: ATTEND Internal Medicine Hematology & Oncology | DX: C83.05 Small cell B-cell lymphoma, lymph nodes of inguinal region and lower limb (principal) | CPT/HCPCS: 78815; A9552 ==

== ENCOUNTER 2022-09-23 11:45 | Outpatient (CLI) | payer MEDICARE, BC | END 2022-09-23 11:46 | disposition home or self-care (01) | LOC: PET 11:45 | PROVIDERS: ATTEND Internal Medicine Hematology & Oncology | DX: C83.05 Small cell B-cell lymphoma, lymph nodes of inguinal region and lower limb (principal); R59.0 Localized enlarged lymph nodes; R94.8 Abnormal results of function studies of other organs and systems | CPT/HCPCS: 78815; A9552 ==

== ENCOUNTER 2022-12-13 05:48 | Day surgery (SDC) | payer MEDICARE, BC ==
[2022-12-10 11:43] VITALS: BMI 22.8
[2022-12-10 13:16] LABS: Anion Gap 14 mmol/L (10-20); BUN (Urea Nitrogen) 39 mg/dL (8.4-25.7); Calc. Creatinine Clearance 34 mL/min (70-130); Carbon Dioxide 28 mmol/L (23-31); Chloride 100 mmol/L (98-107); Estimated GFR 39; Glucose 257 mg/dL (83-110); Potassium 5.4 mmol/L (3.5-5.1); Sodium 137 mmol/L (136-145)
[2022-12-10 13:26] LABS: Hemoglobin 10.7 g/dL (13.5-17.5); Mean Corpuscular HGB CONC 31.8 g/dL (32.0-36.0); Mean Corpuscular Hemoglobin 29.6 pg (27.0-33.0); Mean Corpuscular Volume 93.4 fl (81.2-95.1); Mean Platelet Volume 10.6 fl (7.4-10.4); Platelet Count 132 10x3/uL (150-450); RBC Distribution Width 14.9 % (11.5-14.5); Red Blood Cell (RBC) Count 3.61 10x6/uL (4.32-5.72); White Blood Cell (WBC) Count 4.9 10x3/uL (3.5-10.5)
[2022-12-13] MEDS ORDERED: Lidocaine 1% MPF 2 ML VIAL ONE (06:27)
[2022-12-13] MEDS ORDERED: fentaNYL 50 mcg/mL 1 mL Vial ONE (06:31)
[2022-12-13] MEDS ORDERED: Lidocaine 1% (PF) 30 ML VIAL ONE (08:09)
[2022-12-13] MEDS ORDERED: Gentamicin 80 MG/100 ML BAG ONE (08:09)
[2022-12-13] MEDS ORDERED: Vancomycin 500 MG VIAL (PEDI) ONE ×3 (08:09→08:38)
[2022-12-13] MEDS ORDERED: PROPOFOL 200 MG/20 ML VIAL ONE (08:36)
[2022-12-13] MEDS ORDERED: Lidocaine 1% PF 5 ML VIAL ONE (08:36)
[2022-12-13] MEDS ORDERED: diphenhydrAMINE 50 MG/ML VIAL ONE (08:36)
[2022-12-13] MEDS ORDERED: Clindamycin/D5W 900 mg/50 ml Premix Bag ONE (08:38)
[2022-12-13] MEDS ORDERED: HYDROmorphone 2 MG/ML VIAL SLOW IVP PRN (10:39)
[2022-12-13] MEDS ORDERED: Ondansetron HCl/PF 4 MG/2 ML Vial IVP PRN (10:39)
[2022-12-13] MEDS ORDERED: Promethazine HCl 25 MG/ML VIAL IM PRN (10:39)
[2022-12-13] MEDS ORDERED: Acetaminophen 325 MG TAB ONE (10:59)
== END 2022-12-13 11:49 | disposition home or self-care (01) ==
LOC: SDC 05:48
PROVIDERS: ATTEND Internal Medicine Cardiovascular Disease
DX: I47.20 Ventricular tachycardia, unspecified (principal); I50.22 Chronic systolic (congestive) heart failure; I50.1 Left ventricular failure, unspecified; I25.10 Atherosclerotic heart disease of native coronary artery without angina pectoris; I10 Essential (primary) hypertension; I48.91 Unspecified atrial fibrillation; I42.0 Dilated cardiomyopathy; E78.5 Hyperlipidemia, unspecified; E11.9 Type 2 diabetes mellitus without complications; Z88.1 Allergy status to other antibiotic agents; Z95.810 Presence of automatic (implantable) cardiac defibrillator; Z88.0 Allergy status to penicillin; Z88.2 Allergy status to sulfonamides; Z88.5 Allergy status to narcotic agent; Z91.048 Other nonmedicinal substance allergy status; Z88.8 Allergy status to other drugs, medicaments and biological substances; Z87.891 Personal history of nicotine dependence; Z79.899 Other long term (current) drug therapy; Z88.6 Allergy status to analgesic agent
CPT/HCPCS: 33241; 33249; 80048; 85027; 93641; C1763; C1882; J3010; 33264; J1200; J1580; J2001; J2704; J3371; J3490

== ENCOUNTER 2023-10-19 21:17 | Inpatient (IN) | payer MEDICARE ==
[2023-10-19] MEDS ORDERED: Amiodarone 150 MG/3 ML VIAL ONE (21:43)
[2023-10-19] MEDS ORDERED: Amiodarone 450 MG, Admixture Fee 1 EACH in Dextrose 5% in Water 250 ML IVPB SCH (22:15)
[2023-10-19 22:24] LABS: #Basophils Less than 0.03 10x3/uL (0.0-0.2); %Basophils 0.4 % (0.0-1.0); %Eosinophils 2.7 % (0.0-10.0); %Lymphocytes 41.9 % (21.0-51.0); %Monocytes 11.5 % (0.0-10.0); %Neutrophils 43.1 % (42.0-75.0); Hematocrit 39.3 % (42.0-52.0); Mean Corpuscular HGB CONC 33.1 g/dL (32.0-36.0); Mean Corpuscular Hemoglobin 30.6 pg (27.0-31.0); Mean Corpuscular Volume 92.5 fL (78.0-98.0); Platelet Count 79 10x3/uL (130-400); RBC Distribution Width 14.7 % (11.5-14.5); Red Blood Cell (RBC) Count 4.25 mill/uL (4.70-6.10)
[2023-10-19 22:30] LABS: INR-International Normal Ratio 1.1; PTT 24.4 sec (22.9-36.1); Prothrombin Time 14.3 sec (12.0-14.7)
[2023-10-19 23:00] LABS: Actual Bicarbonate (HCO3v) 21.5 mEq/L (22-28); Base Excess -6.2 mEq/L (-2.0 to +3.0); Calcium, Ionized (venous) 1.22 mmol/L (1.16-1.32); Chloride (VBG) 97 mmol/L (98-106); Hematocrit-VBG 40 % (42.0-52.0); Hemoglobin (Hb) 13.7 g/dL (12.6-17.4); Potassium (VBG) 4.82 mmol/L (3.70-5.30); Sodium 136 mmol/L (133-146); pH (venous) 7.242 (7.32-7.43)
[2023-10-19 23:01] LABS: Platelet Adequacy Comment Platelets Decreased; RBC Morphology Within Normal Limits
[2023-10-19] MEDS ORDERED: Furosemide 40 MG (4 mL) VIAL ONE (23:01)
[2023-10-19 23:09] LABS: Globulin 3.4 g/dL (2.4-3.5)
[2023-10-19 23:18] LABS: ALT (SGPT) 9 U/L (8-55); AST (SGOT) 27 U/L (5-34); Albumin 3.7 g/dL (3.4-4.8); Alkaline Phosphatase 103 U/L (40-110); Anion Gap 22 mmol/L (10-20); BUN (Urea Nitrogen) 38 mg/dL (8.4-25.7); Bilirubin, Total 0.5 mg/dL (0.2-1.2); Calc. Creatinine Clearance 0 mL/min (70-130); Calcium 10.4 mg/dL (7.8-10.44); Carbon Dioxide 21 mmol/L (23-31); Chloride 97 mmol/L (98-107); Estimated GFR 27; Glucose 151 mg/dL (83-110); Potassium 4.8 mmol/L (3.5-5.1); Protein, Total 7.1 g/dL (5.8-8.1); Sodium 135 mmol/L (136-145)
[2023-10-19 23:26] LABS: Bacteria/HPF None Seen HPF (None Seen); Bilirubin Negative (Negative); Blood, Urine Negative (Negative); CAUTI Indications for Culture Dysuria,urgency,freq; Clarity Clear (Clear); Glucose, Urine (Dipstick) 500 mg/dL (Negative); Ketone, Urine Negative (Negative); Leukocyte Negative Leu/uL (Negative); Nitrite Negative (Negative); Protein, Urine (Dipstick) 30 mg/dL (Neg-Trace); RBC/HPF 0-3 HPF (0-3); Specific Gravity, Urine 1.014 (1.002-1.036); Squamous Epithelial 0-3 HPF (0-3); Urobilinogen Normal mg/dL (Less than 2); WBC/HPF 0-3 HPF (0-3); pH, Urine 5.5 (5.0-9.0)
[2023-10-19 23:29] LABS: Magnesium 1.7 mg/dL (1.6-2.6)
[2023-10-19 23:30] LABS: Urine Culture Reflex No No
[2023-10-19] MEDS ORDERED: Magnesium 2 GM/50 ML BAG (IN WATER) ONE (23:35)
[2023-10-19 23:36] LABS: Troponin I 0.033 ng/mL (< 0.028)
[2023-10-19] MEDS ORDERED: Ondansetron PF 4 MG/2 ML Vial ONE (23:43)
[2023-10-19] MEDS ORDERED: Aspirin Chewable 81 MG TAB ONE (23:55)
[2023-10-19] MEDS ORDERED: fentaNYL 50 mcg/mL 1 mL Vial ONE (23:58)
[2023-10-19] MEDS ORDERED: DOPamine 400 MG/D5W 250 ML 0 ML ONE (23:59)
[2023-10-20] MEDS ORDERED: DOBUTamine 500 mg/250 ml 250 ML ONE
[2023-10-20] MEDS ORDERED: Sodium Chloride 0.9% 100 ML ONE (00:59)
[2023-10-20] MEDS ORDERED: Cefepime 2 GM VIAL ONE (00:59)
[2023-10-20] MEDS ORDERED: NOREPINEPHRINE 8 MG/250 ML-D5W 250 ML ONE (01:34)
[2023-10-20 02:34] LABS: Anion Gap 22 mmol/L (10-20); BUN (Urea Nitrogen) 40 mg/dL (8.4-25.7); Calc. Creatinine Clearance 0 mL/min (70-130); Calcium 9.7 mg/dL (7.8-10.44); Carbon Dioxide 19 mmol/L (23-31); Chloride 100 mmol/L (98-107); Estimated GFR 31; Glucose 180 mg/dL (83-110); Potassium 4.7 mmol/L (3.5-5.1); Sodium 136 mmol/L (136-145)
[2023-10-20] MEDS ORDERED: Dextrose 50% Abboject 50 ML SYRINGE SLOW IVP PRN (02:51)
[2023-10-20] MEDS ORDERED: Glucagon 1 MG/ML KIT IM PRN (02:51)
[2023-10-20] MEDS ORDERED: Dextrose 5% in Water 1,000 ML IV PRN (02:51)
[2023-10-20] MEDS ORDERED: HumaLOG 300 UNITS/3 ML VIAL SC PRN (02:51)
[2023-10-20 03:44] VITALS: BMI 22.7
[2023-10-20] MEDS ORDERED: Ipratropium/Albuterol 3 ML NEB NEB PRN (03:46)
[2023-10-20] MEDS ORDERED: Vancomycin Dose by Levels Sliding Scale (Wt 71-99) FS SCH (04:15)
[2023-10-20] MEDS: Vancomycin (BATCH) 1.75 GM in Premix 1 BAG IVPB SCH (05:26)
[2023-10-20] MEDS ORDERED: DOBUTamine 500 mg/250 ml 250 ML IVPB SCH (05:45)
[2023-10-20] MEDS: HumaLOG 300 UNITS/3 ML VIAL SC PRN (06:26)
[2023-10-20] MEDS: Amiodarone 450 MG in Dextrose 5% in Water 250 ML IVPB SCH (07:00)
[2023-10-20 07:26] LABS: #Basophils Less than 0.03 10x3/uL (0.0-0.2); #Eosinphils Less than 0.03 10x3/uL (0.0-0.7); %Basophils 0.1 % (0.0-1.0); %Lymphocytes 33.8 % (21.0-51.0); %Monocytes 10.9 % (0.0-10.0); %Neutrophils 54.8 % (42.0-75.0); Hematocrit 36.9 % (42.0-52.0); Hemoglobin 12.1 g/dL (14.0-18.0); Mean Corpuscular HGB CONC 32.8 g/dL (32.0-36.0); Mean Corpuscular Hemoglobin 30.3 pg (27.0-31.0); Mean Corpuscular Volume 92.5 fL (78.0-98.0); Mean Platelet Volume 10.6 fL (7.4-10.4); Platelet Count 97 10x3/uL (130-400); RBC Distribution Width 14.6 % (11.5-14.5); Red Blood Cell (RBC) Count 3.99 mill/uL (4.70-6.10)
[2023-10-20 07:33] LABS: Globulin 2.8 g/dL (2.4-3.5)
[2023-10-20 07:37] LABS: ALT (SGPT) 8 U/L (8-55); AST (SGOT) 21 U/L (5-34); Albumin 3.2 g/dL (3.4-4.8); Alkaline Phosphatase 89 U/L (40-110); Anion Gap 20 mmol/L (10-20); BUN (Urea Nitrogen) 40 mg/dL (8.4-25.7); Bilirubin, Total 0.5 mg/dL (0.2-1.2); Calc. Creatinine Clearance 26 mL/min (70-130); Calcium 9.5 mg/dL (7.8-10.44); Carbon Dioxide 22 mmol/L (23-31); Chloride 99 mmol/L (98-107); Estimated GFR 29; Glucose 223 mg/dL (83-110); Magnesium 1.9 mg/dL (1.6-2.6); Potassium 4.5 mmol/L (3.5-5.1); Sodium 136 mmol/L (136-145)
[2023-10-20 08:25] LABS: Critical Call Chem Troponin I SURG.MPN@0825; Troponin I 0.806 ng/mL (< 0.028)
[2023-10-20] MEDS: Pantoprazole 40 MG VIAL IVP SCH (08:40)
[2023-10-20] MEDS: Sodium Chloride 0.9% 500 ML IV SCH (09:40)
[2023-10-20] MEDS: NOREPINEPHRINE 8 MG/250 ML-D5W 250 ML IVPB SCH (13:44)
[2023-10-20] MEDS ORDERED: Albuterol 200 PUFF (6.7GM INHALER) INH PRN (14:18)
[2023-10-20] MEDS: QUEtiapine 25 MG TAB PO SCH ×2 (14:58→20:58)
[2023-10-20 19:19] LABS: Critical Call Chem Troponin I NUR.KK6@1918; Troponin I 0.936 ng/mL (< 0.028)
[2023-10-20] MEDS: Atorvastatin Calcium 20 MG TAB PO SCH (20:57)
[2023-10-20] MEDS: Fluticasone Propionate Nasal Spray 16 gm Bottle NASAL SCH (20:57)
[2023-10-20] MEDS: Carvedilol 3.125 MG TAB PO SCH (20:57)
[2023-10-20] MEDS: Tamsulosin HCl 0.4 MG CAP PO SCH (20:58)
[2023-10-20] MEDS: Sertraline 25 MG TAB PO SCH (20:58)
[2023-10-20] MEDS: Temazepam 15 MG CAP PO SCH (20:59)
[2023-10-20] MEDS: Pramipexole Di-HCl 0.125 MG TAB PO PRN (23:45)
[2023-10-21] MEDS: Cefepime 1 GM in Sodium Chloride 0.9% 100 ML IVPB SCH (00:52)
[2023-10-21 01:16] LABS: Vancomycin, Trough 16.3 ug/mL
[2023-10-21] MEDS: Vancomycin HCl 500 MG in Sodium Chloride 0.9% 100 ML IVPB SCH (02:32)
[2023-10-21 04:42] LABS: Hemoglobin 11.7 g/dL (14.0-18.0); Mean Corpuscular HGB CONC 32.5 g/dL (32.0-36.0); Mean Corpuscular Hemoglobin 29.8 pg (27.0-31.0); Mean Corpuscular Volume 91.6 fL (78.0-98.0); Mean Platelet Volume 10.7 fL (7.4-10.4); Platelet Count 94 10x3/uL (130-400); RBC Distribution Width 14.8 % (11.5-14.5); Red Blood Cell (RBC) Count 3.93 mill/uL (4.70-6.10)
[2023-10-21 05:01] LABS: Anion Gap 16 mmol/L (10-20); BUN (Urea Nitrogen) 43 mg/dL (8.4-25.7); Calc. Creatinine Clearance 23 mL/min (70-130); Carbon Dioxide 22 mmol/L (23-31); Chloride 98 mmol/L (98-107); Potassium 4.3 mmol/L (3.5-5.1); Sodium 132 mmol/L (136-145)
[2023-10-21 05:02] LABS: ALT (SGPT) 8 U/L (8-55); AST (SGOT) 19 U/L (5-34); Albumin 3.1 g/dL (3.4-4.8); Alkaline Phosphatase 82 U/L (40-110); Bilirubin, Total 0.5 mg/dL (0.2-1.2); Calcium 8.9 mg/dL (7.8-10.44); Estimated GFR 24; Globulin 2.7 g/dL (2.4-3.5); Glucose 152 mg/dL (83-110); Magnesium 1.8 mg/dL (1.6-2.6); Protein, Total 5.8 g/dL (5.8-8.1)
[2023-10-21 05:06] LABS: Band 14 % (5-11); Eosinophils 4 % (0-10); Hypochromia SLIGHT = 6-15 cells HPF (0-5); Lymphocytes 46 % (21-51); Monocytes 7 % (0-10); Neutrophil 19 % (42-75); Platelet Adequacy Comment Platelets Decreased; Reactive Lymphocytes 10 % (0-10)
[2023-10-21] MEDS: Levothyroxine Sodium 100 MCG TAB PO SCH (05:51)
[2023-10-21] MEDS: Furosemide 20 MG (2 mL) VIAL SLOW IVP SCH (08:00)
[2023-10-21] MEDS: Empagliflozin 25 MG TAB PO SCH (08:00)
[2023-10-21] MEDS: Loratadine 10 MG TAB PO SCH (08:00)
[2023-10-21] MEDS: CO Q-10 CAPSULE 100 MG PO SCH (08:00)
[2023-10-21] MEDS: Aspirin 81 mg Enteric Coated Tablet PO SCH (08:00)
[2023-10-21] MEDS: Multivitamin W/ Minerals 1 TAB PO SCH (08:07)
[2023-10-21] MEDS ORDERED: Sacubitril 24MG/Valsartan 26 MG TAB PO SCH (09:00)
[2023-10-21] MEDS ORDERED: Allopurinol 300 MG TAB PO SCH (09:00)
[2023-10-21] MEDS: Ipratropium/Albuterol 3 ML NEB ONE ×2 (09:26→09:28)
[2023-10-21] MEDS: DOBUTamine 500 mg/250 ml 250 ML IVPB SCH (09:32)
[2023-10-21] MEDS: Ipratropium/Albuterol 3 ML NEB NEB SCH ×2 (10:34→13:00)
[2023-10-21 15:59] LABS: Creatinine, Urine 46.33 mg/dL (63-166)
[2023-10-21 16:00] LABS: Microalbumin Urine 21.7 mg/dL (0.5-50.0); Microalbumin/Creat Ratio 468.4 mg/g (Less than 30)
[2023-10-22 05:19] LABS: Hematocrit 32.2 % (42.0-52.0); Hemoglobin 10.6 g/dL (14.0-18.0); Mean Corpuscular HGB CONC 32.9 g/dL (32.0-36.0); Mean Corpuscular Hemoglobin 30.5 pg (27.0-31.0); Mean Corpuscular Volume 92.5 fL (78.0-98.0); Mean Platelet Volume 11.8 fL (7.4-10.4); Platelet Count 89 10x3/uL (130-400); RBC Distribution Width 14.9 % (11.5-14.5); Red Blood Cell (RBC) Count 3.48 mill/uL (4.70-6.10)
[2023-10-22 05:27] LABS: ALT (SGPT) 7 U/L (8-55); AST (SGOT) 14 U/L (5-34); Albumin 2.8 g/dL (3.4-4.8); Alkaline Phosphatase 75 U/L (40-110); Anion Gap 16 mmol/L (10-20); BUN (Urea Nitrogen) 48 mg/dL (8.4-25.7); Bilirubin, Total 0.5 mg/dL (0.2-1.2); Calc. Creatinine Clearance 21 mL/min (70-130); Calcium 8.6 mg/dL (7.8-10.44); Carbon Dioxide 21 mmol/L (23-31); Chloride 93 mmol/L (98-107); Estimated GFR 21; Globulin 2.6 g/dL (2.4-3.5); Glucose 141 mg/dL (83-110); Magnesium 1.8 mg/dL (1.6-2.6); Potassium 4.1 mmol/L (3.5-5.1); Protein, Total 5.4 g/dL (5.8-8.1); Sodium 126 mmol/L (136-145)
[2023-10-22 06:44] LABS: Anisocytosis SLIGHT = 6-15 cells HPF (0-5); Band 9 % (5-11); Eosinophils 4 % (0-10); Large Platelets 1.3 % (0-5); Lymphocytes 61 % (21-51); Macrocytosis SLIGHT = 6-15 cells HPF (0-5); Monocytes 6 % (0-10); Neutrophil 20 % (42-75); Ovalocytes SLIGHT = 2-5 cells HPF (0-1); Platelet Adequacy Comment Platelets Decreased; Smudge Cells 21.5 %
[2023-10-22] MEDS: Acetaminophen 325 MG TAB PO PRN (11:18)
[2023-10-22] MEDS: Benzocaine/Menthol 1 LOZ LOZ PO PRN (14:28)
[2023-10-22] MEDS: diphenhydrAMINE 25 MG CAP PO PRN (20:34)
[2023-10-22] MEDS: Ondansetron PF 4 MG/2 ML Vial IVP PRN (22:21)
[2023-10-23] MEDS ORDERED: Senokot S 8.6-50 MG TAB PO PRN (01:23)
[2023-10-23 06:18] LABS: #Basophils Less than 0.03 10x3/uL (0.0-0.2); %Basophils 0.1 % (0.0-1.0); %Eosinophils 0.5 % (0.0-10.0); %Lymphocytes 19.4 % (21.0-51.0); %Monocytes 9.1 % (0.0-10.0); %Neutrophils 68.8 % (42.0-75.0); Hematocrit 35.4 % (42.0-52.0); Hemoglobin 11.9 g/dL (14.0-18.0); Mean Corpuscular HGB CONC 33.6 g/dL (32.0-36.0); Mean Corpuscular Hemoglobin 30.4 pg (27.0-31.0); Mean Corpuscular Volume 90.3 fL (78.0-98.0); Mean Platelet Volume 11.2 fL (7.4-10.4); Platelet Count 110 10x3/uL (130-400); RBC Distribution Width 14.3 % (11.5-14.5); Red Blood Cell (RBC) Count 3.92 mill/uL (4.70-6.10)
[2023-10-23 06:37] LABS: ALT (SGPT) 7 U/L (8-55); AST (SGOT) 16 U/L (5-34); Alkaline Phosphatase 93 U/L (40-110); Anion Gap 16 mmol/L (10-20); BUN (Urea Nitrogen) 46 mg/dL (8.4-25.7); Bilirubin, Total 0.7 mg/dL (0.2-1.2); Calc. Creatinine Clearance 22 mL/min (70-130); Calcium 8.9 mg/dL (7.8-10.44); Carbon Dioxide 22 mmol/L (23-31); Chloride 90 mmol/L (98-107); Estimated GFR 22; Globulin 2.9 g/dL (2.4-3.5); Glucose 189 mg/dL (83-110); Magnesium 1.8 mg/dL (1.6-2.6); Potassium 4.5 mmol/L (3.5-5.1); Protein, Total 5.9 g/dL (5.8-8.1); Sodium 123 mmol/L (136-145)
[2023-10-23] MEDS: Polyethylene Glycol 3350 17 GM Packet PO SCH (09:00)
[2023-10-23] MEDS: Pantoprazole DR 40 MG TAB PO SCH (09:00)
[2023-10-23] MEDS: Furosemide 40 MG (4 mL) VIAL SLOW IVP SCH (09:00)
[2023-10-23] MEDS ORDERED: Bisacodyl 10 MG SUPP PR PRN (09:46)
[2023-10-23] MEDS: diphenhydrAMINE 50 MG/ML VIAL IVP SCH (22:52)
[2023-10-24] MEDS: Lorazepam 2 MG/ML VIAL SLOW IVP PRN (09:02)
[2023-10-24 13:40] VITALS: TEMP 98.5
== END 2023-10-24 14:57 | disposition hospice, home (50) | DRG 280 ==
LOC: ERS 21:17 → CCU 10-20 02:19
PROVIDERS: ADMIT Internal Medicine; ATTEND Internal Medicine
PROC: 3E033XZ Introduction of Vasopressor into Peripheral Vein, Percutaneous Approach (ICD-10-PCS; principal; 2023-10-20)
DX: I13.0 Hypertensive heart and chronic kidney disease with heart failure and stage 1 through stage 4 chronic kidney disease, or unspecified chronic kidney disease (principal); I50.23 Acute on chronic systolic (congestive) heart failure; I21.4 Non-ST elevation (NSTEMI) myocardial infarction; J96.01 Acute respiratory failure with hypoxia; R57.0 Cardiogenic shock; C83.00 Small cell B-cell lymphoma, unspecified site; N17.9 Acute kidney failure, unspecified; R18.8 Other ascites; I47.20 Ventricular tachycardia, unspecified; E87.1 Hypo-osmolality and hyponatremia; E87.20 Acidosis, unspecified; Z66 Do not resuscitate; E78.5 Hyperlipidemia, unspecified; I25.10 Atherosclerotic heart disease of native coronary artery without angina pectoris; E11.22 Type 2 diabetes mellitus with diabetic chronic kidney disease; Z98.890 Other specified postprocedural states; N18.30 Chronic kidney disease, stage 3 unspecified; E11.40 Type 2 diabetes mellitus with diabetic neuropathy, unspecified; Z96.642 Presence of left artificial hip joint; E03.9 Hypothyroidism, unspecified; I25.5 Ischemic cardiomyopathy; N40.0 Benign prostatic hyperplasia without lower urinary tract symptoms; R33.9 Retention of urine, unspecified; D69.6 Thrombocytopenia, unspecified; I50.84 End stage heart failure; I95.9 Hypotension, unspecified; Z88.1 Allergy status to other antibiotic agents; Z88.8 Allergy status to other drugs, medicaments and biological substances; Z95.810 Presence of automatic (implantable) cardiac defibrillator; Z79.899 Other long term (current) drug therapy; Z79.82 Long term (current) use of aspirin; Z79.51 Long term (current) use of inhaled steroids; Z95.1 Presence of aortocoronary bypass graft; Z98.41 Cataract extraction status, right eye; Z98.42 Cataract extraction status, left eye; Z87.891 Personal history of nicotine dependence; Z79.890 Hormone replacement therapy; Z51.5 Encounter for palliative care
CPT/HCPCS: 36415; 36416; 71045; 71250; 74176; 76705; 80048; 80053; 80202; 81001; 82010; 82043; 82805; 83605; 83735; 83880; 84145; 84300; 84443; 84484; 84540; 85025; 85610; 85730; 86140; 87040; 93005; 93306; 94640; C9113; J0282; J0692; J1200; J1250; J1265; J1815; J1940; J2060; J2405; J3010; J3370; J3475; J3490; J7030; J7070; J7620